=== PATIENT | female | born 1960 | race Caucasian/White ===

== ENCOUNTER 2016-08-28 09:03 | Day surgery (SDC) | payer BC ==
[~2016-08-28 09:03] MED LIST: LIDOCAINE HCL 1% MPF SOL ONE; PROPOFOL 500 MG/50 ML EMU IV ONE
[2016-08-28 11:00] VITALS: TEMP 97.7
[2016-08-28 11:25] VITALS: RESP 20
[2016-08-28 11:45] VITALS: BP 139/89; PULSE 76; O2SAT 96
== END 2016-08-28 11:58 | disposition home or self-care (01) ==
LOC: SURG 09:03
PROVIDERS: ATTEND Internal Medicine Gastroenterology
DX: Z12.11 Encounter for screening for malignant neoplasm of colon (principal); Z86.010 Personal history of colon polyps; K64.4 Residual hemorrhoidal skin tags; K64.8 Other hemorrhoids; D12.4 Benign neoplasm of descending colon
CPT/HCPCS: 45380; 99001; J2001; J2704